=== PATIENT | male | born 1980 ===

== ENCOUNTER 2021-04-05 15:30 | Outpatient (REF) | payer SELFPAY ==
[2021-04-07 15:46] LABS: COVID-19 RT-PCR UVMMC Result Negative (Negative)
== END 2021-04-05 15:31 | disposition home or self-care (01) ==
LOC: NCHCN 15:30
PROVIDERS: Visit Provider Internal Medicine
DX: Z20.822 Contact with and (suspected) exposure to COVID-19 (principal)
CPT/HCPCS: U0003